=== PATIENT | male | born 1985 | race Caucasian/White ===

== ENCOUNTER 2019-03-20 20:23 | Emergency (ER) | payer MEDICARE, MEDICAID, SELFPAY ==
[2019-03-20] VITALS (9 sets, daily range): BP systolic 113–140; BP diastolic 54–95; PULSE 111–140; RESP 14–30; TEMP 36.8–36.9; O2SAT 93–98
[2019-03-20] MEDS: SODIUM CHLORIDE 0.9% 1,000 ML 1000 ML IV ×3 (21:00→23:30)
--- NOTE | 2019-03-20 21:09 | DI.RAD.S_ITS ---
PROCEDURE: XR CHEST 1V INDICATIONS: short of breath TECHNIQUE: One view of the chest was acquired. COMPARISON: [facility], CR, XR CHEST 1 VIEW, 08/26/2018, 2:37. FINDINGS: Surgical changes and devices: None. Lungs and pleura: Lungs are clear. No pleural effusions or pneumothorax. Mediastinum: Mediastinal contours appear normal. Heart size is normal. Bones and chest wall: No suspicious bony lesions. Overlying soft tissues appear unremarkable. IMPRESSION: No acute process. Dictated by: Nat Santamaria M.D. on 03/20/2019 at 21:34 Approved by: Nat Santamaria M.D. on 03/20/2019 at 21:34
--- NOTE | 2019-03-20 21:22 | ED.GENADULT ---
[facility] - General Adult General Chief complaint: Ear Stated complaint: STATES LOST HEARING Time Seen by Provider: 03/20/19 20:57 Source: patient Mode of arrival: ambulatory History of Present Illness HPI narrative: Patient is a 33-year-old male with history of schizophrenia presenting with a variety of complaints. He states he cannot hear out of his ear in is requesting prednisone. He has actually seen and evaluated [facility] on 03/16/2019 for the same. Diagnosed with upper respiratory in infection. He says that time he was coughing some blood. And started on amoxicillin for otitis media. He actually is quite diaphoretic tachycardic and dyspneic at my time of interview in. Heart rate in the 140s. He denies any chest pain. He says he does have some difficulty breathing. He is still quite anxious. His biggest concern is left ear problem Related Data Home Medications Medication Instructions Recorded Confirmed olanzapine [Zyprexa] 30 mg PO BEDTIME #0 09/15/16 03/20/19 Allergies Allergy/AdvReac Type Severity Reaction Status Date / Time No Known Drug Allergies Allergy Verified 03/20/19 20:35 Review of Systems Review of Systems ROS Unobtainable: All systems reviewed & are unremarkable except as noted in HPI and below Constitutional Reports excessive sweating and Reports fatigue Eyes Denies change in vision, Denies eye discharge, Denies irritation and Denies loss of vision ENT Ears, Nose, Mouth, and Throat: Reports as per HPI, Denies change in voice, Denies neck pain and Denies sore throat Cardiovascular Denies chest pain, Reports rapid heart rate, Denies irregular heart rhythm, Denies lightheadedness, Denies palpitations, Reports dyspnea and Denies orthopnea Respiratory Reports cough, Reports hemoptysis and Reports dyspnea Gastrointestinal Gastrointestinal: Denies abdominal pain, Denies change in bowel habits, Denies diarrhea, Denies nausea and Denies vomiting Genitourinary Denies hematuria, Denies flank pain, Denies urinary incontinence and Denies urinary urgency Musculoskeletal Denies neck pain Integumentary/Breasts Denies pruritus, Denies erythema, Denies rash and Denies wounds Neurologic Denies loss of vision Endocrine Reports excessive sweating, Reports fatigue and Denies palpitations [facility] Medical History Anxiety (Acute) Schizophrenia (Acute) Social History Smoking Status: Never smoker Social History Smoking Status: Never smoker Exam Initial Vital Signs Initial Vital Signs: Vital Signs Temperature 98.4 F 03/20/19 20:32 Pulse Rate 140 H 03/20/19 20:32 Respiratory Rate 22 03/20/19 20:32 Blood Pressure 140/66 03/20/19 20:32 Pulse Oximetry 98 03/20/19 20:32 GENERAL: Alert male diaphoretic, anxious HEENT: Head atraumatic,EOMI, pupils reactive, face symmetric, neck supple EARS: No erythema bilaterally tympanic membranes visualized bilaterally no bulging no mastoid tenderness CARDIOVASCULAR: Tachycardic regular RESPIRATORY: Decreased breath sounds no wheezing ABDOMEN: Soft, nontender. Normoactive bowel sounds all 4 quadrants. No guarding or rebound. EXTREMITIES: Normal range of motion, no clubbing or edema. Neurovascularly intact NEUROLOGICAL: Alert and oriented x4.Normal gait and speech. Cranial nerves II through XII grossly intact. SKIN: Warm, dry, no laceration, no petechiae, no rashes or lesions. Course Orders Ordered: ED Orders 03/20/19 21:20 Ethanol (ETOH) Stat 03/20/19 21:30 B Type Natriuretic Peptide Stat Complete Blood Count AUTO DIFF Stat Comprehensive Metabolic Panel Stat D Dimer Stat Lactate (Lactic Acid) Stat Magnesium Stat Procalcitonin Stat Troponin & CK Cardiac Panel Stat Urinalysis and Microscopic Stat Urine Drug Screen, Rapid Stat 03/20/19 21:40 Blood Culture Stat Discontinued Medications Albuterol/Ipratropium (Duoneb) 3 ml INH NOW ONE Stop: 03/20/19 21:09 Last Admin: 03/20/19 21:45 Dose: 3 ml Albuterol/Ipratropium (Duoneb) 3 ml INH NOW ONE Stop: 03/20/19 21:57 Last Admin: 03/20/19 21:57 Dose: 3 ml Sodium Chloride (Normal Saline 0.9%) 1,000 mls @ 1,000 mls/hr IV BOLUS ONE Stop: 03/20/19 22:07 Last Infusion: 03/20/19 22:13 Dose: 1,000 mls/hr Admin: 03/20/19 21:00 Dose: 1,000 mls/hr Sodium Chloride (Normal Saline 0.9%) 1,000 mls @ 1,000 mls/hr IV BOLUS ONE Stop: 03/20/19 23:08 Last Infusion: 03/20/19 23:18 Dose: 1,000 mls/hr Admin: 03/20/19 22:14 Dose: 1,000 mls/hr Azithromycin 500 mg/ Dextrose 250 mls @ 250 mls/hr IV NOW ONE Stop: 03/21/19 01:16 Last Infusion: 03/21/19 04:30 Dose: 250 mls/hr Infusion: 03/21/19 02:25 Dose: 250 mls/hr Admin: 03/21/19 01:56 Dose: 250 mls/hr Ceftriaxone Sodium/Dextrose (Rocephin) 1 gm in 50 mls @ 100 mls/hr IV NOW ONE Stop: 03/21/19 01:44 Last Infusion: 03/21/19 01:59 Dose: 0 mls/hr Admin: 03/21/19 01:55 Dose: 100 mls/hr Methylprednisolone (Solu-Medrol 125 Mg Vial) 125 mg IV NOW ONE Stop: 03/21/19 04:33 Last Admin: 03/21/19 04:38 Dose: 125 mg Vital Signs - 8 hr 03/20/19 22:20 03/20/19 22:44 03/20/19 23:30 Pulse Rate 127 H 115 H 111 H Respiratory Rate 14 20 19 Blood Pressure [Right Arm] 113/64 114/60 127/54 L Pulse Oximetry 96 95 93 03/20/19 23:47 03/21/19 01:30 03/21/19 04:16 Pulse Rate 112 H 102 H 115 H Respiratory Rate 19 20 Blood Pressure [Right Arm] 113/61 112/62 104/57 L Pulse Oximetry 95 94 94 Medical Decision Making Medical Records Medical records reviewed: Yes I reviewed the patient's medical records. Records received from [facility]. Patient for seen evaluated on 03/14/2019. Or he was having productive yellow sputum and dyspnea and wheezing. X-ray at that time was negative. Patient initial heart rate at that time 1:20 a.m. at discharge 100. He was also given Decadron 4 mg daily for 5 days along with albuterol inhaler. Patient seen again at [facility] March 16 2019 complaining of hearing loss and ear pain. At that time diagnosed with otitis media and started on amoxicillin. Heart rate at that time 106 Lab Data Lab results reviewed: Yes I reviewed the patient's lab results. Result diagrams: 03/20/19 21:30 03/20/19 21:30 Lab Results 03/20/19 03/20/19 03/20/19 Range/Units 21:20 21:30 21:30 WBC 16.1 H (4.5-11.0) X10^3/uL RBC 5.29 (4.5-5.9) X10^6/uL Hgb 16.2 (13.5-17.5) g/dL Hct 46.6 (41-53) % MCV 88.0 (80-100) fL MCH 30.6 (26-34) PG MCHC 34.8 (30-36) % RDW 13.5 (11.6-14.8) % Plt Count 271 (150-400) X10^3/uL Neut % (Auto) Not Reportable Lymph % (Auto) Not Reportable [place] % (Auto) Not Reportable Eos % (Auto) Not Reportable Baso % (Auto) Not Reportable Lymph # (Auto) Not Reportable [place] # (Auto) Not Reportable Baso # (Auto) Not Reportable Seg Neutrophils % 68.0 (38-70) % Lymphocytes % (Manual) 26.0 (25-45) % Monocytes % (Manual) 6.0 (2-11) % Eosinophils % (Manual) 0.0 L (2-4) % RBC Morphology Normal morphology D-Dimer (<230) ng/mL Sodium 137 (137-145) mmol/L Potassium 4.5 (3.4-5.1) mmol/L Chloride 102 (98-107) mmol/L Carbon Dioxide 18 L (22-32) mmol/L BUN 14 (9-20) mg/dL Creatinine 0.70 (0.66-1.25) mg/dL Estimated GFR > 60.0 (>60) mL/min BUN/Creatinine Ratio 20.0 (6-22) Glucose 187 H (70-100) mg/dL Lactate (0.7-2.1) mmol/L Calcium 8.6 (8.4-10.2) mg/dL Magnesium 2.6 H (1.6-2.3) mg/dL Total Bilirubin 0.8 (0.2-1.3) mg/dL AST 61 H (17-59) IU/L ALT 120 H (21-72) IU/L Alkaline Phosphatase 82 (38-126) U/L Total Creatine Kinase 45 L (55-170) U/L CK-MB (CK-2) TNP CK-MB (CK-2) Rel Index TNP Troponin I < 0.012 (0.01-0.034) ng/mL B-Natriuretic Peptide < 100 (<100) Total Protein 7.1 (6.3-8.2) g/dL Albumin 4.1 (3.5-5.0) g/dL Globulin 3.0 (1.7-4.1) g/dL Albumin/Globulin Ratio 1.4 (1.0-2.8) Procalcitonin (<0.5) ng/mL Urine Color Urine Appearance Urine pH (4.5-8.0) Ur Specific [place] (1.000-1.035) Urine Protein (Negative) Urine Glucose (UA) (Negative) g/dL Urine Ketones (NEGATIVE) Urine Occult Blood (Negative) Urine Nitrate (Negative) Urine Bilirubin (NEGATIVE) Urine Urobilinogen (0.2) E.U./dL Ur Leukocyte Esterase (NEGATIVE) Urine RBC (0-5/HPF) Urine WBC (0-5/HPF) Urine Bacteria (None) Ur Culture Indicated? Micro UA Comment Urine Opiates Screen (Negative) Ur Oxycodone Screen (Negative) Urine Methadone Screen (Negative) Ur Barbiturates Screen (Negative) U Tricyclic Antidepress (Negative) Ur Phencyclidine Scrn (Negative) Ur Amphetamines Screen (Negative) U Methamphetamines Scrn (Negative) Ur MDMA Scrn (Ecstasy) (Negative) U Benzodiazepines Scrn (Negative) Urine Cocaine Screen (Negative) U Marijuana (THC) Screen (Negative) Ethyl Alcohol 200 mg/dL 03/20/19 03/20/19 03/20/19 Range/Units 21:30 21:30 21:30 WBC (4.5-11.0) X10^3/uL RBC (4.5-5.9) X10^6/uL Hgb (13.5-17.5) g/dL Hct (41-53) % MCV (80-100) fL MCH (26-34) PG MCHC (30-36) % RDW (11.6-14.8) % Plt Count (150-400) X10^3/uL Neut % (Auto) Lymph % (Auto) [place] % (Auto) Eos % (Auto) Baso % (Auto) Lymph # (Auto) [place] # (Auto) Baso # (Auto) Seg Neutrophils % (38-70) % Lymphocytes % (Manual) (25-45) % Monocytes % (Manual) (2-11) % Eosinophils % (Manual) (2-4) % RBC Morphology D-Dimer 699 H (<230) ng/mL Sodium (137-145) mmol/L Potassium (3.4-5.1) mmol/L Chloride (98-107) mmol/L Carbon Dioxide (22-32) mmol/L BUN (9-20) mg/dL Creatinine (0.66-1.25) mg/dL Estimated GFR (>60) mL/min BUN/Creatinine Ratio (6-22) Glucose (70-100) mg/dL Lactate 3.6 H (0.7-2.1) mmol/L Calcium (8.4-10.2) mg/dL Magnesium (1.6-2.3) mg/dL Total Bilirubin (0.2-1.3) mg/dL AST (17-59) IU/L ALT (21-72) IU/L Alkaline Phosphatase (38-126) U/L Total Creatine Kinase (55-170) U/L CK-MB (CK-2) CK-MB (CK-2) Rel Index Troponin I (0.01-0.034) ng/mL B-Natriuretic Peptide (<100) Total Protein (6.3-8.2) g/dL Albumin (3.5-5.0) g/dL Globulin (1.7-4.1) g/dL Albumin/Globulin Ratio (1.0-2.8) Procalcitonin < 0.05 (<0.5) ng/mL Urine Color Urine Appearance Urine pH (4.5-8.0) Ur Specific [place] (1.000-1.035) Urine Protein (Negative) Urine Glucose (UA) (Negative) g/dL Urine Ketones (NEGATIVE) Urine Occult Blood (Negative) Urine Nitrate (Negative) Urine Bilirubin (NEGATIVE) Urine Urobilinogen (0.2) E.U./dL Ur Leukocyte Esterase (NEGATIVE) Urine RBC (0-5/HPF) Urine WBC (0-5/HPF) Urine Bacteria (None) Ur Culture Indicated? Micro UA Comment Urine Opiates Screen (Negative) Ur Oxycodone Screen (Negative) Urine Methadone Screen (Negative) Ur Barbiturates Screen (Negative) U Tricyclic Antidepress (Negative) Ur Phencyclidine Scrn (Negative) Ur Amphetamines Screen (Negative) U Methamphetamines Scrn (Negative) Ur MDMA Scrn (Ecstasy) (Negative) U Benzodiazepines Scrn (Negative) Urine Cocaine Screen (Negative) U Marijuana (THC) Screen (Negative) Ethyl Alcohol mg/dL 03/20/19 03/20/19 03/20/19 Range/Units 21:30 21:30 23:40 WBC (4.5-11.0) X10^3/uL RBC (4.5-5.9) X10^6/uL Hgb (13.5-17.5) g/dL Hct (41-53) % MCV (80-100) fL MCH (26-34) PG MCHC (30-36) % RDW (11.6-14.8) % Plt Count (150-400) X10^3/uL Neut % (Auto) Lymph % (Auto) [place] % (Auto) Eos % (Auto) Baso % (Auto) Lymph # (Auto) [place] # (Auto) Baso # (Auto) Seg Neutrophils % (38-70) % Lymphocytes % (Manual) (25-45) % Monocytes % (Manual) (2-11) % Eosinophils % (Manual) (2-4) % RBC Morphology D-Dimer (<230) ng/mL Sodium (137-145) mmol/L Potassium (3.4-5.1) mmol/L Chloride (98-107) mmol/L Carbon Dioxide (22-32) mmol/L BUN (9-20) mg/dL Creatinine (0.66-1.25) mg/dL Estimated GFR (>60) mL/min BUN/Creatinine Ratio (6-22) Glucose (70-100) mg/dL Lactate 1.5 (0.7-2.1) mmol/L Calcium (8.4-10.2) mg/dL Magnesium (1.6-2.3) mg/dL Total Bilirubin (0.2-1.3) mg/dL AST (17-59) IU/L ALT (21-72) IU/L Alkaline Phosphatase (38-126) U/L Total Creatine Kinase (55-170) U/L CK-MB (CK-2) CK-MB (CK-2) Rel Index Troponin I (0.01-0.034) ng/mL B-Natriuretic Peptide (<100) Total Protein (6.3-8.2) g/dL Albumin (3.5-5.0) g/dL Globulin (1.7-4.1) g/dL Albumin/Globulin Ratio (1.0-2.8) Procalcitonin (<0.5) ng/mL Urine Color Yellow Urine Appearance Clear Urine pH 5.0 (4.5-8.0) Ur Specific [place] 1.010 (1.000-1.035) Urine Protein Negative (Negative) Urine Glucose (UA) Negative (Negative) g/dL Urine Ketones Negative (NEGATIVE) Urine Occult Blood Negative (Negative) Urine Nitrate Negative (Negative) Urine Bilirubin Negative (NEGATIVE) Urine Urobilinogen 0.2 (0.2) E.U./dL Ur Leukocyte Esterase Negative (NEGATIVE) Urine RBC None seen (0-5/HPF) Urine WBC None seen (0-5/HPF) Urine Bacteria None seen (None) Ur Culture Indicated? Cult not indicated Micro UA Comment Microscopic normal Urine Opiates Screen Negative (Negative) Ur Oxycodone Screen Negative (Negative) Urine Methadone Screen Negative (Negative) Ur Barbiturates Screen Negative (Negative) U Tricyclic Antidepress Negative (Negative) Ur Phencyclidine Scrn Negative (Negative) Ur Amphetamines Screen Negative (Negative) U Methamphetamines Scrn Negative (Negative) Ur MDMA Scrn (Ecstasy) Negative (Negative) U Benzodiazepines Scrn Negative (Negative) Urine Cocaine Screen Negative (Negative) U Marijuana (THC) Screen Negative (Negative) Ethyl Alcohol mg/dL Urine Dip Bedside Urine Glucose Negative Bedside Urine Bilirubin - Negative Bedside Urine Ketone - Negative Urine Specific [place] 1.015 Bedside Urine Occult Blood - Negative Bedside Urine pH 5.0 Bedside Urine Protein - Negative Bedside Urine Urobilinogen - Negative Bedside Urine Nitrite - Negative Bedside Urine Leukocytes - Negative Esterase Point of care testing: Urine Dip Bedside Urine Glucose Negative Bedside Urine Bilirubin - Negative Bedside Urine Ketone - Negative Urine Specific [place] 1.015 Bedside Urine Occult Blood - Negative Bedside Urine pH 5.0 Bedside Urine Protein - Negative Bedside Urine Urobilinogen - Negative Bedside Urine Nitrite - Negative Bedside Urine Leukocytes - Negative Esterase Imaging Data Chest x-ray: Radiologist's impression: PROCEDURE: XR CHEST 1V INDICATIONS: short of breath TECHNIQUE: One view of the chest was acquired. COMPARISON: [facility], CR, XR CHEST 1 VIEW, 08/26/2018, 2:37. FINDINGS: Surgical changes and devices: None. Lungs and pleura: Lungs are clear. No pleural effusions or pneumothorax. Mediastinum: Mediastinal contours appear normal. Heart size is normal. Bones and chest wall: No suspicious bony lesions. Overlying soft tissues appear unremarkable. IMPRESSION: No acute process. Dictated by: Nat Santamaria M.D. on 03/20/2019 at 21:34 CT scan - chest: Radiologist's impression: branch assistant report: Respiratory motion limits evaluation for possible small distal pulmonary emboli. No pulmonary emboli are identified. Cardiomegaly. Small pericardial effusion. Mild bilateral atelectasis. ECG Data Attestation: I personally reviewed and interpreted this ECG as follows: Prior ECG tracings: available for review Interpretation: Sinus tachycardia rate 134 Q-wave noted in lead 3 (present on previous EKG in 2012) no ST elevations no T-wave inversions no priors to compare MDM Narrative Medical decision making narrative: Patient is tachycardic diaphoretic afebrile, normotensive. He overall appears sick, but is awake alert and concentrated very much on the prednisone that he needs for his ear. His x-ray is negative for pneumonia. He has some mild leukocytosis of 16 and a lactic acid of 3.6. Possible sepsis. His heart rate is improving significantly with IV fluids. He overall is looking a little bit better. Improvement after albuterol. Still very concerned about the prednisone for his ear. He actually just finished a 5 day course of dexamethasone The patient's D-dimer is 699. With persistent tachycardia out possible PE. Unfortunately our CT scan went down-patient will be transferred to [facility] for CT. I did talk with hospitalist about empiric treatment, for PE and admission. However states he wants PE study 1st. The patient returns from [facility] without any incident. Remains tachycardic 108-117. The possible infection and sepsis versus alcohol withdrawal. Patient states that his heart rate is always fast. He overall is looking much better. We talked about admission. He states he does not want to stay he has a job interview today. He overall would feel much more comfortable at home. Lactic acid improved with appropriate IV fluids. I have been in contact with his mother. She states that he mostly lives with his dad who lives in [place]. She denies any knowing of his alcohol use. She states sometimes she thinks dad but some have 1 or 2 beers. I have updated her, patient is wanting to go home overall appears improved. She understands if he worsens then he needs to return to emergency department immediately. Patient has albuterol inhaler at home already. I encouraged him to use it and take it. He states that his heart rate is always fast. He is not sure why. He understands that he may have a very serious infection, that could even potentially lead to . The patient overall does have capacity needs no involuntary criteria. He overall does look much improved. Leukocytosis may be from dexamethasone. Certainly his heart rate and lactic acid have also improved. Discharge Plan Departure Patient Disposition: Home Clinical Impression: Alcohol intoxication Qualifiers: Complication of substance-induced condition: uncomplicated Qualified Code(s): F10.920 - Alcohol use, unspecified with intoxication, uncomplicated Reactive airway disease Qualifiers: Asthma severity: unspecified severity Asthma persistence: unspecified Asthma complication type: with acute exacerbation Qualified Code(s): J45.901 - Unspecified asthma with (acute) exacerbation Discharge Date/Time: 03/21/19 05:15 Interventions: ED Discharge Assessment Last Done: 03/21/19 05:15 Instructions: Asthma -- Adult Activity Restrictions/Additional Instructions: *You have been diagnosed with asthma exacerbation *What to do: You do not need prednisone *Continue to take medications as directed Finished amoxicillin as previously prescribed *Follow up with your primary care provider in 2-3 days *Return to ER if you should have increasing shortness of breath heart palpitations or any new, worsening or concerning symptoms Prescriptions: No Action olanzapine [Zyprexa] 10 MG tablet 30 mg PO BEDTIME Qty: 0 RF: 0 Referrals: Erma Alves ARNP [Primary Care Provider] -
[2019-03-20 21:44] LABS: Bacteria Urine None Seen; RBC Urine None Seen (0-5/HPF); WBC Urine None Seen (0-5/HPF)
[2019-03-20 21:45] LABS: Lactate (Lactic Acid) 3.6 mmol/L (0.7-2.1)
[2019-03-20] MEDS: ALBUTEROL/IPRATROPIUM 3 ML AMPUL INH ×2 (21:45→21:57)
[2019-03-20 21:47] LABS: Alanine Aminotransferase 120 IU/L (21-72); Albumin 4.1 g/dL (3.5-5.0); Albumin Globulin Ratio 1.4 (1.0-2.8); Alkaline Phosphatase 82 U/L (38-126); Appearance Urine UA CLEAR; Aspartate Aminotransferase 61 IU/L (17-59); Bilirubin Total 0.8 mg/dL (0.2-1.3); Bilirubin Urine UA NEGATIVE (NEGATIVE); Blood Urea Nitrogen 14 mg/dL (9-20); Calcium 8.6 mg/dL (8.4-10.2); Carbon Dioxide 18 mmol/L (22-32); Chloride 102 mmol/L (98-107); Color Urine UA YELLOW; Creatine Kinase 45 U/L (55-170); Estimated Glomerular Filt Rate > 60.0 mL/min (>60); Glucose 187 mg/dL (70-100); Glucose Urine UA NEGATIVE (Negative); Ketones Urine UA NEGATIVE (NEGATIVE); Leukocyte Esterase Urine UA NEGATIVE (NEGATIVE); Magnesium 2.6 mg/dL (1.6-2.3); Nitrite Urine UA NEGATIVE (Negative); Occult Blood Urine UA NEGATIVE (Negative); Potassium 4.5 mmol/L (3.4-5.1); Protein Urine UA NEGATIVE (Negative); Sodium 137 mmol/L (137-145); Total Protein 7.1 g/dL (6.3-8.2); Urobilinogen Urine UA 0.2 E.U./dL (0.2)
[2019-03-20 21:48] LABS: Hematocrit 46.6 % (41-53); Hemoglobin 16.2 g/dL (13.5-17.5); Mean Corpuscular HGB Conc 34.8 % (30-36); Mean Corpuscular Hemoglobin 30.6 PG (26-34); Platelet Count 271 X10^3/uL (150-400); Red Blood Cell Count 5.29 X10^6/uL (4.5-5.9); Red Cell Distribution Width 13.5 % (11.6-14.8); White Blood Cell Count 16.1 X10^3/uL (4.5-11.0)
--- NOTE | 2019-03-20 21:49 | PC.NURSE ---
Pt mom Ute called and pt consented to speaking with mom and updating her on plan of care. Mom can be reached at [phone]. Dr. Michelet hastings.
[2019-03-20 21:51] LABS: Add Manual Diff / Slide Review YES
[2019-03-20 21:52] LABS: Urine Amphetamines Negative (Negative); Urine Barbiturates Negative (Negative); Urine Benzodiazepines Negative (Negative); Urine Cocaine Negative (Negative); Urine MDMA Negative (Negative); Urine Methadone Negative (Negative); Urine Methamphetamines Negative (Negative); Urine Morphine/Opi cutoff 2000 Negative (Negative); Urine Oxycodone Negative (Negative); Urine Phencyclidine Negative (Negative); Urine Tetrahydrocannabinol Negative (Negative); Urine Tricyclic Antidepressant Negative (Negative)
[2019-03-20 21:53] LABS: HEMOLYSIS 73 (0-50)
[2019-03-20 21:58] LABS: D Dimer 699 ng/mL (<230); Troponin I < 0.012 ng/mL (0.01-0.034)
[2019-03-20 22:08] LABS: Culture Indicated Urine Cult Not Indicated; Urine Comments Microscopic Normal
[2019-03-20 22:14] LABS: Procalcitonin < 0.05 ng/mL (<0.5)
[2019-03-20 22:15] LABS: B Type Natriuretic Peptide < 100 (<100)
[2019-03-20 22:21] LABS: RBC Morphology Normal Morphology
[2019-03-20 22:22] LABS: Ethanol (ETOH) 200 mg/dL
--- NOTE | 2019-03-20 22:55 | PC.NURSE ---
Pt states he needs prednisone and has decreased hearing in his left ear since last week. Reports his main concern is his left ear and he is fearful he going lose his hearing, denies ear pain. Pt has hx of schizophrenia appears anxious, is diaphoretic and dyspneic with tachycardia in the 130'3-140's. Was seen at [facility] for same on 03/16/2019 and diagnosed with upper respiratory infection and started on amoxicillin for otitis media. Reports intermittent productive cough with some blood streaked mucous. a. Endorses some difficulty breathing and denies chest pain. PT has a mental health provider in [place] that he sees via skype and states he has not been taking his zyprexa, smells of etoh and admits to drinking beer tonight.
[2019-03-20 23:32] LABS: Reflexed Lactate in 2 Hours Y
[2019-03-21 00:03] LABS: Lactate 2HR (Lactic Acid Rflx) 1.5 mmol/L (0.7-2.1)
[2019-03-21 01:30] VITALS: BP 112/62; PULSE 102; O2SAT 94
[2019-03-21] MEDS: CEFTRIAXONE 1 GM/50 ML FROZ.PIGGY IV (01:55)
[2019-03-21] MEDS: AZITHROMYCIN 500 MG in DEXTROSE 5% IN WATER 250 ML IV (01:56)
--- NOTE | 2019-03-21 02:31 | PC.NURSE ---
CT down, Pt transferred to [facility] for CT with ambulance crew at 0230 with report given to Sherron of ambulance.
[2019-03-21 04:16] VITALS: BP 104/57; PULSE 115; RESP 20; O2SAT 94
[2019-03-21] MEDS: methylPREDNISolone 125 MG/2 ML VIAL IV (04:38)
--- NOTE | 2019-03-21 05:07 | PC.NURSE ---
and RN in room updating pt on plan of care. Pt admission was discussed by , pt declining to stay for admission or further treatment stating he needs to go and has a job interview today. Pt appears agitated and anxious, pulling of cardiac leads and requesting IV out. Pt consented earlier to mom being updated on plan of care and has now changed his mind and does not want his mom notified about his care. Dr aware and IV removed by RN.
== END 2019-03-21 05:15 | disposition home or self-care (01) ==
PROVIDERS: Emergency Provider Emergency Medicine; Family Provider Nurse Practitioner; PCP Nurse Practitioner
DX: J45.901 Unspecified asthma with (acute) exacerbation (principal); F10.920 Alcohol use, unspecified with intoxication, uncomplicated; R00.0 Tachycardia, unspecified; R06.02 Shortness of breath
CPT/HCPCS: 36415; 36591; 71045; 80053; 80305; 80320; 81001; 81003; 82550; 83605; 83735; 83880; 84145; 84484; 85025; 85379; 87040; 93005; 94640; 96361; 96365; 96366; 96375; 99284; 99285; J2930